=== PATIENT | male | born 1935 | race Caucasian/White ===

== ENCOUNTER 2018-04-05 13:20 | Inpatient (IN) | payer MEDICARE, OTHER ==
[~2018-04-05] VITALS: Ht 162.6 cm; Wt 63.5 kg
[~2018-04-05 13:20] MED LIST: ACCUNEB0.63 MG/3 INH; ACETAMINOPHEN325 M1 PO; ALEVE220 M1 PO; ASPIRIN EC325 M1 PO; ASPIRIN81 M2 PO; BACTRIM DS TAB1 EACH PO; BACTROBAN CREAM30 G1; BENADRYL ALLERG25 MG PO; CEFDINIR300 MG; CLOPIDOGREL75 MG PO; ENALAPRIL MALEAT5 M1 PO; ENALAPRIL MALEAT5 M2; FISH OIL 1,001000 M1 PO; FISH OIL PO; GABAPENTIN 100100 MG PO; GLUCOPHAGE1000 MG PO; HYDROCODON-ACE1 EAC7; HYDROCODON-ACE1 EAC7 PO; IMDUR 30 MG TAB30 M1 PO; IRON325 PO; LEVEMIR SUBQ; LIPITOR20 MG PO; LISINOPRIL10 MG PO; LISINOPRIL2.5 MG PO; LISINOPRIL5 MG PO; LOPRESSOR 12.12.5 MG PO; LOPRESSOR25 PO; MAGNESIUM400 MG PO; MAGOX 400400 MG PO; MEDROL DOSPAK21 TAB PO; MEDROLDOSEPACK PO; MEVACOR40 MG PO; MIRALAX255 GM PO; NITROGLYCERIN0.4 MG SL; NOVOLIN 70100 UNIT/5 IJ; NOVOLOG100 UNIT/1; OXYBUTYNIN 5 MG5 M1 PO; OXYCODONE HCL 55 MG PO; OXYCODONE HCL10 M1 PO; PHENERGAN 25 MG25 MG PO; PLAVIX 75 MG TA75 M1 PO; POTASSIUM20 PO; RANEXA500 MG PO; RAPAFLO8 MG PO; TUMS PO; TYLENOL325 MG PO; VALTREX1000 MG PO; VENTOLIN HFA INH8 GM INH; ZOFRAN 4 MG ORAL4 MG PO
[2018-04-05 13:28] VITALS: BP 131/61
[2018-04-05] MEDS ORDERED: POTASSIUM20 PO (13:37)
[2018-04-05] MEDS ORDERED: CAPECITABINE500 MG PO (13:42)
[2018-04-05] MEDS ORDERED: [UNRECOGNIZED DRUG - OTHER] (13:43)
[2018-04-05 13:51] LABS: ABSOLUTE EOSINOPHILS 0.1 thou/uL (0.0-0.7); ABSOLUTE LYMPHOCYTES 0.9 thou/uL (0.8-5.3); ABSOLUTE MONOCYTES 0.3 thou/uL (0.0-1.2); ABSOLUTE NEUTROPHILS 3.7 thou/uL (1.6-8.1); BASOPHILS 0.6 %; EOSINOPHILS 2.9 %; HEMATOCRIT 35.3 % (42.0-52.0); HEMOGLOBIN 11.9 gm/dL (14.0-18.0); LYMPHOCYTES 18.1 %; MCH 32.5 pg (26.0-34.0); MCHC 33.7 g/dL (28.0-37.0); MCV 96.4 fL (80.0-100.0); MONOCYTES 6.6 %; MPV 7.2 fl. (7.2-11.1); NUCLEATED RBCS 0 /100WBC; PLATELET COUNT* 172 thou/uL (150-400); POLYS 71.8 %; RBC 3.66 mil/uL (4.50-6.00); RDW-CV 14.5 % (10.5-14.5); WBC 5.2 thou/uL (4.0-11.0)
[2018-04-05 13:58] LABS: ANION GAP 6 mmol/L (7-16); BUN 18 mg/dL (7-18); CALCIUM 8.7 mg/dL (8.5-10.1); CHLORIDE 103 mmol/L (98-107); CO2 30 mmol/L (21-32); CREATININE 1.5 mg/dL (0.6-1.3); GLUCOSE 307 mg/dL (70-99); POTASSIUM 4.1 mmol/L (3.5-5.1); SODIUM 139 mmol/L (136-145)
[2018-04-05 14:03] LABS: APTT 25.8 Seconds (25.0-31.3); PROTIME 10.2 Seconds (9.20-11.50)
[2018-04-05 14:05] LABS: ALBUMIN 3.2 g/dL (3.4-5.0); ALKALINE PHOSPHATASE 177 U/L (46-116); LIPASE 276 U/L (73-393); SGOT 24 U/L (15-37); SGPT 27 U/L (30-65); TOTAL BILIRUBIN 0.4 mg/dL (<0.1-1.0); TOTAL PROTEIN 7.1 g/dL (6.4-8.2); TROPONIN-I LEVEL <0.06 ng/mL (<0.06)
[2018-04-05 18:07] VITALS: BP 136/63
--- NOTE | 2018-04-05 18:10 | EKG ---
[place] [address] ELECTROCARDIOGRAM REPORT Name: NICOLE OLIVER SR Room: [place] [address] ADM IN .R.#: [id number] Admission: 04/05/18 Attend Phys: Ramez Lucas Discharge: Date of : 39 Report #: [id number] THIS REPORT FOR: //name// [facility] ED Test Date: 2018-04-05 Test Time: 13:29:55 Pat Name: NICOLE MELODY Department: Room: [facility] Gender: M Hone Operator: : 1935 Requested By: [place] Order Number: [id number] MD: Kyle Kitchen Measurements Intervals [place] Rate: 69 P: 41 ME: 193 QRS: -39 QRSD: 90 T: 1 QT: 399 QTc: 428 Interpretive Statements Sinus rhythm Abnormal R-wave progression, early transition Compared to ECG 02/26/2016 15:00:26 Right ventricular hypertrophy no longer present Electronically Signed On 04-05-2018 18:10:09 [employer] ARCHITECT by Kyle Kitchen [email or web address] <ELECTRONICALLY SIGNED> By: Kyle Kitchen MD, FACC 04/05/18 1810 1329 1329 Kyle Kitchen MD, FAC /EPI
[2018-04-05 18:54] VITALS: BP 144/61
[2018-04-05 20:00] VITALS: BP 106/94
[2018-04-06] VITALS: BP 102/65; BP 127/56
[2018-04-06 04:00] VITALS: BP 128/63
[2018-04-06 08:00] VITALS: BP 141/63
[2018-04-06 11:33] LABS: HEMATOCRIT 32.3 % (42.0-52.0); MCH 32.7 pg (26.0-34.0); MCHC 33.9 g/dL (28.0-37.0); MCV 96.6 fL (80.0-100.0); MPV 7.5 fl. (7.2-11.1); NUCLEATED RBCS 0 /100WBC; PLATELET COUNT* 151 thou/uL (150-400); RBC 3.35 mil/uL (4.50-6.00); RDW-CV 14.7 % (10.5-14.5); WBC 5.4 thou/uL (4.0-11.0)
[2018-04-06 11:58] LABS: ANION GAP 9 mmol/L (7-16); BUN 19 mg/dL (7-18); CALCIUM 8.4 mg/dL (8.5-10.1); CHLORIDE 110 mmol/L (98-107); CO2 25 mmol/L (21-32); CREATININE 1.4 mg/dL (0.6-1.3); GLUCOSE 261 mg/dL (70-99); MAGNESIUM 1.9 mg/dL (1.8-2.4); SODIUM 144 mmol/L (136-145); TROPONIN-I LEVEL <0.06 ng/mL (<0.06)
[2018-04-06 12:00] VITALS: BP 108/71
[2018-04-06 12:21] LABS: ABSOLUTE LYMPHOCYTES 0.3 thou/uL (0.8-5.3); ABSOLUTE MONOCYTES 0.2 thou/uL (0.0-1.2); PLATELET ESTIMATE ADEQUATE
[2018-04-06 16:00] VITALS: BP 113/63
--- NOTE | 2018-04-06 17:10 | 2DMMODE ---
[place] [address] 2 D/M-MODE ECHOCARDIOGRAM Name: NICOLE OLIVER Room: [address] IN [facility]#: [id number] Admission: 04/05/18 Attend Phys: Harry Vinson Discharge: Date of : 39 Date of Service: 04/06/18 1710 Report #: [id number] THIS REPORT FOR: //name// APPROVED REPORT Study performed: 04/06/2018 10:19:18 EXAM: Comprehensive 2D, Doppler, and color-flow Echocardiogram Patient Location: In-Patient Room #: [facility] Status: routine BSA: 1.68 HR: 59 bpm BP: 128/63 mmHg Rhythm: NSR Other Information Study Quality: Good Indications Dyspnea CAD Chest Pain 2D Dimensions IVSd: 10.08 (7-11mm) LVOT Diam: 20.39 (18-24mm) LVDd: 43.51 mm PWd: 10.00 (7-11mm) Ascending Ao: 30.75 (22-36mm) LVDs: 40.77 (25-40mm) Aortic Root: 32.49 mm Volumes Left Atrial Volume (Systole) LA ESV Index: 23.30 mL/m2 Aortic Valve AoV Peak Josh.: 1.25 m/s AO Peak Gr.: 6.22 mmHg LVOT Max P.28 mmHg AO Mean Gr.: 3.34 mmHg LVOT Mean P.11 mmHg LVOT Max V: 0.76 m/s AO V2 VTI: 29.67 cm LVOT Mean V: 0.48 m/s ALVARO (VTI): 2.32 cm2 LVOT V1 VTI: 21.07 cm Mitral Valve E/A Ratio: 0.72 [place] [address] 2 D/M-MODE ECHOCARDIOGRAM Name: NICOLE OLIVER Room: [address] IN .R.#: [id number] Admission: 04/05/18 Attend Phys: Harry Vinson Discharge: Date of : 39 Date of Service: 04/06/18 1710 Report #: [id number] MV Decel. Time: 225.44 ms MV E Max Josh.: 0.90 m/s MV PHT: 65.38 ms MVA (PHT): 3.37 cm2 TDI E/Lateral E': 8.18 E/Medial E': 8.18 Medial E' Josh.: 0.11 m/s Lateral E' Josh.: 0.11 m/s Pulmonary Valve PV Peak Josh.: 0.79 m/s PV Peak Gr.: 2.51 mmHg Left Ventricle The left ventricle is normal size. Regional wall motion abnormalities are noted with inferobasilar akinesis. There is normal left ventricular wall thickness. The left ventricular systolic function is normal. The left ventricular ejection fraction is within the normal range. LVEF is 55%. Grade I - abnormal relaxation pattern. Right Ventricle The right ventricle is normal size. The right ventricular systolic function is normal. Atria The left atrium size is normal. The right atrium size is normal. Aortic Valve Moderate aortic valve sclerosis. No aortic regurgitation is present. There is no aortic valvular stenosis. Mitral Valve The mitral valve is normal in structure. Trace mitral regurgitation. No evidence of mitral valve stenosis. Tricuspid Valve The tricuspid valve is normal in structure. Unable to assess PA pressure. Trace tricuspid regurgitation. Pulmonic Valve The pulmonary valve is normal in structure. There is no pulmonic valvular regurgitation. Great Vessels The aortic root is normal in size. IVC is [place] [address] 2 D/M-MODE ECHOCARDIOGRAM Name: NICOLE OLIVER Room: [address] IN [facility]#: [id number] Admission: 04/05/18 Attend Phys: Harry Vinson Discharge: Date of : 39 Date of Service: 04/06/18 1710 Report #: [id number] collapses >50% with inspiration. Pericardium There is no pericardial effusion. <Conclusion> The left ventricle is normal size. There is normal left ventricular wall thickness. The left ventricular systolic function is normal. The left ventricular ejection fraction is within the normal range. LVEF is 55%. Grade I - abnormal relaxation pattern. The right ventricle is normal size. The left atrium size is normal. Moderate aortic valve sclerosis. No aortic regurgitation is present. There is no aortic valvular stenosis. The mitral valve is normal in structure. The tricuspid valve is normal in structure. IVC is normal in size and collapses >50% with inspiration. There is no pericardial effusion. Regional wall motion abnormalities are noted with inferobasilar akinesis. <ELECTRONICALLY SIGNED> By: Meek Langford MD, FACC 04/06/181709 09 09 Meek Langford MD, FACC /INF
[2018-04-06 20:00] VITALS: BP 127/55
[2018-04-07] VITALS: BP 119/56
[2018-04-07 04:00] VITALS: BP 129/56
[2018-04-07 08:15] VITALS: BP 144/60
--- NOTE | 2018-04-07 08:19 | CON ---
[address] [address] CONSULTATION Name: NICOLE OLIVER SR Room: [address] IN M.R.#: [id number] Admission: 04/05/18 Attend Phys: Ramez Lucas Discharge: Date of : 39 Report #: [id number] THIS REPORT FOR: //name// CC: Flaquito Vinson DATE OF SERVICE: 04/06/2018 REASON FOR CONSULTATION: Lung mass and metastatic rectal cancer, current treatment oral Xeloda and Avastin. SUBJECTIVE: The patient is an 82-year-old male who has been treated for metastatic rectal cancer for the last 3 years. The patient had liver resection initially and radiation to oligometastases of the lung and the liver. However, after that in 01/2018, he had widespread metastases based on his PET/CT scan back in 01/2018 showed left lower lobe mass-like surrounding fiducials with increased FDG activity that was a progressive disease. The dimension was 3 x 4. Reviewing his most recent CT angiogram, which was done yesterday at the Emergency Room showed no evidence of PE and that area is almost measuring 3.2 x 4.5 with pneumonia-like changes, the left infrahilar lymph nodes measuring 1.6 x 1.4, which is almost the same from previous imaging. The patient also had a right humerus x-ray, which showed lucent primitive appearing lesions finding worrisome of metastatic disease, which was not evident on the previous PET 2 months ago. The patient reported that the pain at this point is subsiding significantly. REVIEW OF SYSTEMS: All systems were reviewed. It was negative except the above. PAST MEDICAL HISTORY: Significant for coronary artery disease, diabetes mellitus, dyslipidemia, metastatic rectal cancer, hypertension. PAST SURGICAL HISTORY: Colectomy, tonsillectomy, hepatectomy. SOCIAL HISTORY: He is a former smoker. No alcohol abuse or drug abuse. ALLERGIES: HE IS ALLERGIC TO IV DYE. FAMILY HISTORY: Noncontributory. PHYSICAL EXAMINATION: Today, VITAL SIGNS: Temperature 36.4, pulse 58, respirations 20, blood pressure is 141/63, SpO2 is 99% on room air. GENERAL: The patient was sitting in chair, was not in acute distress. LUNGS: Clear [place] [address] CONSULTATION Name: MELODYLATASHARamez WESLEY Room: [address]#: [id number] Admission: 04/05/18 Attend Phys: Ramez Lucas Discharge: Date of : 39 Report #: [id number] HEART: Regular rate and rhythm. S1, S2 within normal limits. ABDOMEN: Soft, nontender, nondistended, bowel sounds positive. LABORATORY DATA: Today, WBC 5.4, hemoglobin 11.2, platelets 151. Chemistry: Creatinine is 1.3, GFR is 49, calcium is 8.4, AST is 24, ALT 27, alkaline phosphatase is 177. IMAGING: As mentioned above. ASSESSMENT AND PLAN: An 82-year-old male, who has been on treatment for metastatic rectal cancer for the last 3-1/2 years. The patient current treatment is oral Xeloda twice a day, 2 weeks on, 1 week off along with Avastin every 3 weeks. He is due for treatment today. I would like to hold his treatment until he is discharged. In terms of his lung metastases based on the PET/CT scan, they look almost the same with mild changes, does not meet the criteria for progressive disease. In terms of his right humerus x-ray finding, I would like to obtain a bone scan to evaluate bone metastases. We will follow up in the clinic once the patient is discharged. <ELECTRONICALLY SIGNED> By: Lakia Rivero MD 04/07/18 0819 1232 [id number] Rivero MD /nt
[2018-04-07 12:00] VITALS: BP 113/51
--- NOTE | 2018-04-07 14:50 | EKG ---
[place] [address] ELECTROCARDIOGRAM REPORT Name: NICOLE OLIVER SR Room: [address] ADM IN M.R.#: [id number] Admission: 04/05/18 Attend Phys: Ramez Lucas Discharge: Date of : 39 Report #: [id number] THIS REPORT FOR: //name// [facility] Test Date: 2018-04-06 Test Time: 08:25:37 Pat Name: NICOLE OLIVER Department: Room: [address] Gender: M Assembly Member: : 1935 Requested By: Harry Vinson Order Number: [id number] MD: Meek Langford Measurements Intervals [place] Rate: 53 P: 16 MD: 197 QRS: -21 QRSD: 94 T: -6 QT: 453 QTc: 426 Interpretive Statements Sinus rhythm Inferior infarct, old Compared to ECG 04/05/2018 13:29:55 Myocardial infarct finding persists Electronically Signed On 04-07-2018 14:50:07 [employer] by Meek Langford [email or web address] <ELECTRONICALLY SIGNED> By: Meek Langford MD, [facility] 04/07/18 1450 4 4 Meek Langford MD, FAC /EPI
[2018-04-07] MEDS ORDERED: KEFLEX500 M1 PO ×2 (14:57→15:03)
[2018-04-07 15:04] VITALS: BP 113/51
--- NOTE | 2018-04-07 16:15 | CON ---
[address] [address] CONSULTATION Name: NICOLE OLIVER SR Room: [address] IN .R.#: [id number] Admission: 04/05/18 Attend Phys: Ramez Lucas Discharge: 04/07/18 Date of : 39 Report #: [id number] THIS REPORT FOR: //name// CC: Flaquito Vinson DATE OF SERVICE: 04/06/2018 HISTORY OF PRESENT ILLNESS: The patient is a very pleasant 82-year-old male with a history of prior myocardial infarction in the inferior region and a prior multivessel stenting. He has known colon cancer with multi-territory metastases. He presented with a shoulder discomfort, which was felt initially to be consistent with ischemic pain. In the past, he describes his ischemic pain as being in the chest and left arm, but never in the right arm. This was predominantly in the shoulder. It was worsened by movement in that area. It has completely remitted by this time. Cardiac enzymes and EKGs revealed no evidence for acute myocardial injury. The patient underwent cardiac catheterization in 2016, revealed stents in the LAD and circumflex. The right coronary was chronically occluded. Recent nuclear stress test revealed inferolateral scar. The patient has risk factors for coronary artery disease including a prior cigarette smoking history, hypercholesterolemia, hypertension and family history of premature coronary artery disease. PAST MEDICAL HISTORY: Remarkable for colon cancer with metastases to the liver and lungs, hypertension, hyperlipidemia and diabetes. SOCIAL HISTORY: The patient is . He has a significant prior cigarette smoking history. FAMILY HISTORY: Unremarkable for premature coronary artery disease. REVIEW OF SYSTEMS: Remarkable for the following: HEMATOLOGIC AND ONCOLOGIC: He has a history of colon cancer with multi-territory metastases. GASTROINTESTINAL: There is a history of prior GI bleeding. CARDIAC: There is a history of prior myocardial infarction and prior [facility] [address] [place] [address] CONSULTATION Name: MELODYNICOLE Room: [address]#: [id number] Admission: 04/05/18 Attend Phys: Ramez Lucas Discharge: 04/07/18 Date of : 39 Report #: [id number] multivessel stenting. Remainder is unremarkable. PHYSICAL EXAMINATION: GENERAL: Demonstrates a somewhat frail appearing elderly Dominican male. VITAL SIGNS: Blood pressure 120/70, pulse rate is 65, respirations are 18 per minute. HEENT: Oral mucosa is moist. NECK: There is no thyromegaly. There is no jugular venous distention. CHEST: Clear. CARDIAC: Reveals normal first and second heart sounds without murmurs or gallops. ABDOMEN: Soft and nontender. EXTREMITIES: Without edema. There are no deformity or arthritic changes. No petechiae or ecchymosis are noted. EKG reveals sinus rhythm with inferoposterior scar and no evidence for acute ischemia or injury. LABORATORY DATA: Troponin is less than 0.06. BUN 19, creatinine 1.4, potassium 4.0, sodium 144, white blood cell count 5900, hemoglobin 11.0, platelets 151,000. IMPRESSION: 1. Right shoulder pain, which is not suggestive of ischemic discomfort. 2. Coronary artery disease, status post prior multivessel stenting and prior inferoposterior myocardial infarction. 3. Hypertension. 4. Hyperlipidemia. 5. Previously noted colon cancer with multi-territory metastases. 6. Type 2 diabetes. RECOMMENDATIONS: At this point, I think the planned workup of the shoulder pain and consideration of metastatic disease involving the shoulder is appropriate. I see nothing at present to suggest that the recent shoulder pain, which was worsened by motion and was not particularly suggestive of myocardial ischemic discomfort is reflective of cardiac ischemia. Thus, I would continue workup as planned and would not recommend additional cardiovascular testing at this time. <ELECTRONICALLY SIGNED> By: Meek Langford MD, FACC 04/07/18 1615 1737 2035Meek Langford MD, FACC /nt
== END 2018-04-07 15:38 | disposition home or self-care (01) | DRG 177 ==
LOC: M.ERS 13:20 → M.TBA-ER 16:25 → M.2W 16:25
PROVIDERS: Physician Assistant; ADMIT Internal Medicine
DX: J69.0 Pneumonitis due to inhalation of food and vomit (principal); N17.0 Acute kidney failure with tubular necrosis; E44.0 Moderate protein-calorie malnutrition; C41.9 Malignant neoplasm of bone and articular cartilage, unspecified; I25.10 Atherosclerotic heart disease of native coronary artery without angina pectoris; E78.00 Pure hypercholesterolemia, unspecified; N18.3 Chronic kidney disease, stage 3 (moderate); E78.5 Hyperlipidemia, unspecified; E11.22 Type 2 diabetes mellitus with diabetic chronic kidney disease; I12.9 Hypertensive chronic kidney disease with stage 1 through stage 4 chronic kidney disease, or unspecified chronic kidney disease; Z85.048 Personal history of other malignant neoplasm of rectum, rectosigmoid junction, and anus; Z90.49 Acquired absence of other specified parts of digestive tract; Z87.891 Personal history of nicotine dependence; Z82.49 Family history of ischemic heart disease and other diseases of the circulatory system; I25.2 Old myocardial infarction; Z79.4 Long term (current) use of insulin; Z93.3 Colostomy status; Z85.05 Personal history of malignant neoplasm of liver; Z87.442 Personal history of urinary calculi; Z91.041 Radiographic dye allergy status; Z91.09 Other allergy status, other than to drugs and biological substances; Z28.21 Immunization not carried out because of patient refusal; Z68.24 Body mass index [BMI] 24.0-24.9, adult; Z95.5 Presence of coronary angioplasty implant and graft

== ENCOUNTER 2018-06-12 17:43 | Inpatient (IN) | payer MEDICARE, OTHER ==
[~2018-06-12] VITALS: Ht 162.6 cm; Wt 63.5 kg
[~2018-06-12 17:43] MED LIST changes: +CAPECITABINE500 MG PO; +KEFLEX500 M1 PO; +TRAMADOL 50 MG50 MG PO; +[UNRECOGNIZED DRUG - OTHER] MISCELL
[2018-06-12 18:01] VITALS: BP 130/69
[2018-06-12 19:18] LABS: HEMATOCRIT 36.4 % (42.0-52.0); HEMOGLOBIN 12.3 gm/dL (14.0-18.0); MCH 34.8 pg (26.0-34.0); MCHC 33.9 g/dL (28.0-37.0); MCV 102.8 fL (80.0-100.0); MPV 7.7 fl. (7.2-11.1); NUCLEATED RBCS 0 /100WBC; PLATELET COUNT* 175 thou/uL (150-400); RBC 3.54 mil/uL (4.50-6.00); RDW-CV 20.9 % (10.5-14.5); WBC 10.1 thou/uL (4.0-11.0)
[2018-06-12 19:25] LABS: APTT 23.5 Seconds (25.0-31.3); INR 1.1; PROTIME 10.9 Seconds (9.20-11.50)
[2018-06-12 19:32] LABS: ABSOLUTE LYMPHOCYTES 1.6 thou/uL (0.8-5.3); ABSOLUTE MONOCYTES 0.4 thou/uL (0.0-1.2); ABSOLUTE NEUTROPHILS 8.1 thou/uL (1.6-8.1); ATYPICAL LYMPHS 8 %
[2018-06-12 19:33] LABS: ANISOCYTOSIS 1+; MACROCYTES 1+
[2018-06-12 19:38] LABS: ALBUMIN 3.5 g/dL (3.4-5.0); CALCIUM 9.6 mg/dL (8.5-10.1); CREATININE 1.7 mg/dL (0.6-1.3); POTASSIUM 5.1 mmol/L (3.5-5.1); TOTAL PROTEIN 7.6 g/dL (6.4-8.2)
[2018-06-12 19:57] VITALS: BP 142/72
[2018-06-12 20:30] VITALS: BP 145/72
[2018-06-13 04:00] VITALS: BP 128/66
[2018-06-13 07:30] VITALS: BP 117/68
--- NOTE | 2018-06-13 09:37 | EKG ---
[place] [address] ELECTROCARDIOGRAM REPORT Name: NICOLE OLIVER SR Room: [address] ADM IN .R.#: [id number] Admission: 06/12/18 Attend Phys: Dane Maria MD Discharge: Date of : 39 Report #: [id number] THIS REPORT FOR: //name// [facility] ED Test Date: 2018-06-12 Test Time: 19:08:29 Pat Name: NICOLE OLIVER Department: Room: [facility] Gender: Configuration Management Advisor: Sharlene MCKEON : 1935 Requested By: Senthil Bailon Order Number: [id number] MD: Flaquito Alexis Measurements Intervals [place] Rate: 69 P: 50 TN: 174 QRS: -37 QRSD: 87 T: -15 QT: 398 QTc: 427 Interpretive Statements Sinus rhythm Abnormal R-wave progression, early transition Inferior infarct, old Compared to ECG 04/06/2018 08:25:37 rate increased Electronically Signed On 06-13-2018 9:36:56 [employer] PRACTITIONER by Flaquito Alexis [email or web address] <ELECTRONICALLY SIGNED> By: Flaquito Alexis MD, FACC 06/13/18 0936 [id number] Flaquito Alexis MD, FAC /EPI
[2018-06-13] MEDS ORDERED: SENNA PLUS TAB1 EACH PO (10:50)
[2018-06-13] MEDS ORDERED: HYDROCODONE-AP1 EAC6 PO (10:52)
[2018-06-13 16:04] VITALS: BP 102/55
[2018-06-13 20:00] VITALS: BP 116/55
[2018-06-14 04:00] VITALS: BP 104/54
[2018-06-14 08:00] VITALS: BP 109/57
[2018-06-14 10:46] VITALS: BP 109/57
== END 2018-06-14 13:50 | disposition home or self-care (01) | DRG 543 ==
LOC: M.ERS 17:43 → M.TBA-ER 19:14 → M.ORTHSURG 19:14
PROVIDERS: Nurse Practitioner Family; ADMIT Internal Medicine
DX: M84.521A Pathological fracture in neoplastic disease, right humerus, initial encounter for fracture (principal); C18.9 Malignant neoplasm of colon, unspecified; C78.7 Secondary malignant neoplasm of liver and intrahepatic bile duct; C78.00 Secondary malignant neoplasm of unspecified lung; C79.51 Secondary malignant neoplasm of bone; E11.9 Type 2 diabetes mellitus without complications; I25.10 Atherosclerotic heart disease of native coronary artery without angina pectoris; K21.9 Gastro-esophageal reflux disease without esophagitis; I10 Essential (primary) hypertension; E78.00 Pure hypercholesterolemia, unspecified; I25.2 Old myocardial infarction; Z91.041 Radiographic dye allergy status; Z91.048 Other nonmedicinal substance allergy status; Z87.891 Personal history of nicotine dependence